=== PATIENT | female | born 1995 | race Caucasian/White ===

== ENCOUNTER 2023-11-20 16:01 | Outpatient (CLI) | payer MEDICAID ==
--- NOTE | 2023-11-20 16:58 | Ultrasound Report ---
PROCEDURE: OB Limited INDICATIONS: POST-TERM OUTSIDE/PRIOR DATING DATA: Last menstrual period (LMP): 02/08/2023. LMP-based estimated date of delivery (GAUTAM): 11/06/2024. First dating scan (date and location): 06/26/2023. Estimated date of delivery (GUATAM) from first dating scan: 11/15/2024. The below data below was generated using the clinical GAUTAM of 11/06/2024 TECHNIQUE: Real-time scanning was performed of the fetus, with image documentation. COMPARISON: Outside exam 06/26/2023 FINDINGS: A single living intrauterine gestation is present. Presentation: Vertex Placenta: Placental position is anterior, without previa. Amniotic fluid index: 14.4 cm, within normal limits for gestational age. heart rate: 123 beats per minutes. Maternal cervical canal: 2.75 cm long; normal length is 2.5 cm or more. Estimated gestational age from initial scan: 40 weeks 6 days Nuchal cord is noted.. IMPRESSION: Single live intrauterine with ultrasound gestational age of 40 weeks 6 days. Nuchal cord is noted. Reviewed by: Brittani Craig MD on 11/20/2023 4:57 PM PST Approved by: Brittani Craig MD on 11/20/2023 4:57 PM PST Station ID: [id number]
== END 2023-11-20 16:02 | disposition home or self-care (01) ==
LOC: DI 16:01
PROVIDERS: ATTEND Midwife
DX: O48.0 Post-term pregnancy (principal); Z3A.40 40 weeks gestation of pregnancy